=== PATIENT | male | born 1945 | race Caucasian/White ===

== ENCOUNTER 2023-10-08 11:31 | Outpatient (CLI) | payer OTHER, SELFPAY ==
--- NOTE | 2023-10-08 11:42 | USCV_ITS ---
ZION HOPE Age: 78 Gender: M : 1945 Exam Date: 10/08/2023 12:24 Ordering Phys: Consuelo Calderon Technologist: CT [place]am [place] [facility] [place]: ischemic heart disease BP: 138 / 91 HR: Rhythm: Sinus Technical Quality: Adequate MEASUREMENTS (Male / Female) Normal Values 2D ECHO LVOT Diameter 2.2 cm LV Ejection Fraction MOD 2C 55.6 % LV Ejection Fraction 2C AL 56.4 % LA Diameter 3.7 cm RA Systolic Volume 4C AL 32.2 ml RA Systolic Volume 4C MOD 31.5 ml LA Sys Volume AL 34.2 cm cubed LA Sys Volume Index AL 16.5 cm cubed/m squared Aorta at Sinotubular Diameter 2.1 cm M-MODE LA Ao Ratio MM 1.8 AV Cusp Separation MM 2.2 cm FINDINGS Left Ventricle Normal LV size with a borderline low ejection fraction of 50 to 55% (visual). Relative hypokinesia of the septum Right Ventricle The right ventricle is normal in size and function. Right Atrium The right atrium is normal in size. Left Atrium The left atrium is normal in size. Mitral Valve No gross abnormalities noted Aortic Valve Thickened aortic valve. Tricuspid Valve No gross abnormalities noted Pulmonic Valve No gross abnormalities noted Pericardium Normal pericardium without effusion. Aorta Normal ascending aorta dimension. IVC Inferior vena cava not visualized. CONCLUSIONS Normal LV size with a borderline low ejection fraction of 50 to 55% (visual). Relative hypokinesia of the septum. Thickened aortic valve. There is no pericardial effusion. There are no intracardiac masses. No similar previous studies are available for comparison Dr Latha Funes MD [facility] (Electronically Signed) Final Date: 12 October 2023 08:04 S
== END 2023-10-08 11:32 | disposition home or self-care (01) ==
LOC: RAD 11:38
PROVIDERS: Visit Provider Nurse Practitioner Family
DX: I25.9 Chronic ischemic heart disease, unspecified (principal)
CPT/HCPCS: 93308